=== PATIENT | male | born 1975 | race African-American/Black ===

== ENCOUNTER 2022-04-22 14:03 | Emergency (ER) | payer MEDICAID, SELFPAY ==
[2022-04-22 14:14] VITALS: BP 141/98; PULSE 100; RESP 18; TEMP 36.2; O2SAT 99; BMI 26.6
--- NOTE | 2022-04-22 14:44 | ED.GENADULT ---
HPI - General Adult General Time Seen by Provider: 14:44 Date Seen: 04/22/22 Chief complaint: Nausea/Vomiting Stated complaint: Vomiting/Dehydrated Time Seen by Provider: 04/22/22 14:22 Source: patient, family and RN notes reviewed Limitations: no limitations History of Present Illness HPI narrative: Adam is a 41-year-old male coming in with complaint of nausea vomiting. States he feels like his heart is racing. He states he has not drank for 2 days now. He admits he has problem with alcohol and has been drinking whiskey for couple weeks. He states when he starts he just feels like he can not stop in when he finishes 1 bottle he gets another. He has not been through treatment before. He is interested in taking oral medicine to prevent drinking. He sees Dr. De Leon in the clinic and I reviewed with him that that may be something he could talk to Dr. De Leon about. He has some abdominal discomfort. Does endorse maybe some blood mixed in the emesis at times. He states he has not been able to sleep for a couple days. He has also had some hiccups. No fevers or chills noted. No cough or cold symptoms. Onset (ago): day(s) Related Data Previous Rx's Medication Instructions Recorded omeprazole 40 mg capsule,delayed 40 mg PO DAILY #14 cap 04/22/22 release ondansetron HCl 4 mg tablet 4 mg PO Q6H PRN #10 tab 04/22/22 Allergies Allergy/AdvReac Type Severity Reaction Status Date / Time No Known Drug Allergies Allergy Verified 04/22/22 14:18 Review of Systems Status of ROS: Reports: 10 or more systems reviewed and unremarkable except as noted in History and below [facility] Medical History (Updated 04/22/22 @ 16:56 by Mary Allen MD) No significant past medical history Surgical History (Updated 04/22/22 @ 14:20 by Agnes Douglas RN) No significant past surgical history Social History Smoking Status: Never smoker How often do you have a drink containing alcohol: 4 or more times a week How many standard drinks containing alcohol do you have on a typical day: 10 or more AUDIT-C Alcohol total score: 8 Non-prescribed substance use: denies use Exam Const: Vital Signs, click to edit/add: Vital Signs - 24 hr 04/22/22 14:14 04/22/22 15:47 Temperature 97.2 F L Pulse Rate [Pulse Oximeter] 100 88 Respiratory Rate 18 18 Blood Pressure [Ri ght Upper Arm] 141/98 H Pulse Oximetry 99 97 Documenting provider has reviewed patient's vital signs: yes Common normals: no apparent distress (Occasional hiccup during my interaction with him), average body habitus, oriented x3, no limitations, healthy appearing and alert General appearance: cooperative and comfortable Orientation/consciousness: Yes awake HENMT: Common normals: normocephalic, head/scalp atraumatic, hearing grossly normal bilaterally, external ears normal, external nose normal, nasal mucous membranes and turbinates normal, moist oral mucous membranes and oropharynx normal Head and scalp: normocephalic and atraumatic Nose: external nose normal and nasal mucous membranes and turbinates normal External ear: external ears normal Eye: Common normals: PERRL, EOMs intact bilaterally and conjunctivae normal Conjunctiva: conjunctiva(e) normal Pupil: PERRL Neck & C-Spine: Common normals: full ROM, no lymphadenopathy, supple, no meningeal signs, no JVD and thyroid normal Thyroid: thyroid normal Resp: Common normals: normal respiratory effort, no retractions, no use of accessory muscles and clear to auscultation bilaterally Auscultation: clear to auscultation bilaterally Cardio: Common normals: no JVD, regular rhythm, S1 normal heart sound, S2 normal heart sound, no gallops, no clicks and no murmurs Rate: tachycardic Rhythm: regular rhythm Heart sounds: S1 normal and S2 normal GI: Common normals: Normal to inspection, nondistended, normoactive bowel sounds present, soft to palpation, non-tender, no hepatosplenomegaly and no masses Palpation: soft and no hepatosplenomegaly Neuro: Common normals: oriented x3 Sensorium/orientation: awake and alert Meningeal signs: no meningeal signs Course Course Hospital Course: Reviewed with Adam that we will place an IV and start some normal saline, will give him 4 mg IV Zofran. We will check baseline labs. Clinically right now is abdomen is soft. He could be dehydrated as well as in early withdrawal. Will watch him closely. Once he is able to tolerate some orals I can give him oral vitamins. Reevaluation(s) Reevaluation #1: Patient received a full 2 L of normal saline, did just urinate and is feeling better. He states he is actually feeling hungry now. He would like to discharge to home. We discussed use of Zofran for prevention of further nausea and have a script at home. We also discussed putting him on a short course of a proton pump inhibitor in case there is some underlying gastritis that was induced from alcohol use. He would like to discharge to home. He states he will take oral multivitamin with folic acid and thiamine. Time: 16:52 Vital Signs Vital signs: Initial Vital Signs Temperature 97.2 F L 04/22/22 14:14 Temperature Source Temporal Artery Scan 04/22/22 14:14 Pulse Rate 100 04/22/22 14:14 Respiratory Rate 18 04/22/22 14:14 Blood Pressure 141/98 H 04/22/22 14:14 Blood Pressure Mean 112 04/22/22 14:14 Blood Pressure Position Supine 04/22/22 14:14 Pulse Oximetry 99 04/22/22 14:14 Oxygen Delivery Method 04/22/22 14:14 Vital Signs Temperature 97.2 F L 04/22/22 14:14 Pulse Rate 100 04/22/22 14:14 Respiratory Rate 18 04/22/22 14:14 Blood Pressure 141/98 H 04/22/22 14:14 Pulse Oximetry 99 04/22/22 14:14 Temperature 97.2 F L 04/22/22 14:14 Pulse Rate 88 04/22/22 15:47 Respiratory Rate 18 04/22/22 15:47 Blood Pressure 141/98 H 04/22/22 14:14 Pulse Oximetry 97 04/22/22 15:47 Medical Decision Making Lab Data Lab results reviewed: Yes I reviewed the patient's lab results Lab results narrative: Reviewed labs with the patient. Reviewed there was mild elevated transaminase enzymes from the liver consistent with mild alcoholic hepatitis. Reviewed with him that this should improve if he abstains from alcohol. There is no evidence of any pancreatitis as lipase is normal. Overall labs are very reassuring. Functionality of liver looks normal with a normal protime. Labs: Lab Results 04/22/22 04/22/22 04/22/22 Range/Units 15:34 15:34 15:34 WBC 5.26 (4.50-11.00) K/uL RBC 5.09 (4.30-5.90) m/uL Hgb 15.0 (13.5-17.5) gm/dL Hct 43.4 (37.0-53.0) % MCV 85 (80-100) fL MCH 30 (26-34) pg MCHC 35 (32-36) gm/dL RDW Coeff of Filipe 12.5 (11.5-15.5) % Plt Count 186 (140-440) K/uL Neut % (Auto) 72.6 H (42.0-72.0) % Lymph % (Auto) 17.3 L (20-44) % Nobles % (Auto) 9.7 (0.0-11.0) % Eos % (Auto) 0.0 (0.0-7.0) % Baso % (Auto) 0.4 (0.0-3.0) % Neut # (Auto) 3.80 (1.7-7.0) K/uL Lymph # (Auto) 0.90 (0.90-2.90) K/uL Nobles # (Auto) 0.50 (0.00-0.90) K/UL Eos # (Auto) 0.00 (0.00-0.50) K/uL Baso # (Auto) 0.02 (0.00-0.30) K/uL Abs Immat Gran (auto) 0.00 (0.00-0.30) K/uL INR 0.99 (0.91-1.10) Sodium 134 L (135-149) mmol/L Potassium 3.9 (3.6-5.1) mmol/L Chloride 91 L (96-114) mmol/L Carbon Dioxide 29 (20-32) mmol/L BUN 18 (5-24) mg/dL Creatinine 1.1 (0.5-1.5) mg/dL Estimated Creat Clear 79.45 Estimated GFR 83 ml/min Glucose 147 H (60-115) mg/dL Lactate (0.5-1.9) mmol/L Calcium 10.3 (8.4-10.6) mg/dL Magnesium 1.8 (1.5-2.6) mg/dL Total Bilirubin 1.9 H (0.1-1.5) mg/dL AST 115 H (12-35) U/L ALT 102 H (4-50) U/L Alkaline Phosphatase 87 (40-150) U/L Total Protein 10.0 H (6.0-8.3) g/dL Albumin 5.3 H (3.3-5.0) g/dL Lipase 113 (23-300) U/L Ethyl Alcohol < 0.01 L (0.01-0.03) % 04/22/22 Range/Units 15:34 WBC (4.50-11.00) K/uL RBC (4.30-5.90) m/uL Hgb (13.5-17.5) gm/dL Hct (37.0-53.0) % MCV (80-100) fL MCH (26-34) pg MCHC (32-36) gm/dL RDW Coeff of Filipe (11.5-15.5) % Plt Count (140-440) K/uL Neut % (Auto) (42.0-72.0) % Lymph % (Auto) (20-44) % Nobles % (Auto) (0.0-11.0) % Eos % (Auto) (0.0-7.0) % Baso % (Auto) (0.0-3.0) % Neut # (Auto) (1.7-7.0) K/uL Lymph # (Auto) (0.90-2.90) K/uL Nobles # (Auto) (0.00-0.90) K/UL Eos # (Auto) (0.00-0.50) K/uL Baso # (Auto) (0.00-0.30) K/uL Abs Immat Gran (auto) (0.00-0.30) K/uL INR (0.91-1.10) Sodium (135-149) mmol/L Potassium (3.6-5.1) mmol/L Chloride (96-114) mmol/L Carbon Dioxide (20-32) mmol/L BUN (5-24) mg/dL Creatinine (0.5-1.5) mg/dL Estimated Creat Clear Estimated GFR ml/min Glucose (60-115) mg/dL Lactate 2.0 H (0.5-1.9) mmol/L Calcium (8.4-10.6) mg/dL Magnesium (1.5-2.6) mg/dL Total Bilirubin (0.1-1.5) mg/dL AST (12-35) U/L ALT (4-50) U/L Alkaline Phosphatase (40-150) U/L Total Protein (6.0-8.3) g/dL Albumin (3.3-5.0) g/dL Lipase (23-300) U/L Ethyl Alcohol (0.01-0.03) % Critical Care Time Critical Care Time Critical Care Time: No Discharge Plan Discharge Clinical Impression: Nausea & vomiting Condition: Improved Instructions: Acute Nausea and Vomiting (ED), Alcohol Withdrawal (ED), Alcohol Use Disorder (ED), Alcoholic Hepatitis (ED) Additional Instructions: Can use Zofran as prescribed if needed for any return of any nausea or vomiting. Do recommend taking the omeprazole daily for the next couple of weeks to help stomach subtle and possibly any underlying gastritis from the alcohol use to resolve. Highly encouraged you to refrain from alcohol use. Please follow-up with Dr. De Leon next week to discuss medication management for abstinence of alcohol. Consider going to alcoholics anonymous. If you have return of your abdominal pain, nausea vomiting is uncontrolled, have further concerns, please seek re-evaluation. Activity Level: Activity as Tolerated Discharge Diet: Regular Prescriptions: New omeprazole 40 mg capsule,delayed release(DR/EC) 40 mg PO DAILY Qty: 14 0RF ondansetron HCl 4 mg tablet 4 mg PO Q6H PRN (Reason: nausea and vomiting) Qty: 10 0RF Follow Up/Referrals: Moise De Leon MD [Primary Care Provider] - Stand Alone Forms: [employer] Info Instructions
[2022-04-22] MEDS: 0.9 % SODIUM CHLORIDE 1000 ml 1,000 ML IV ×2 (15:40→16:11)
[2022-04-22 15:42] LABS: Basophils Absolute Auto 0.02 K/uL (0.00-0.30); Basophils Percent Auto 0.4 % (0.0-3.0); Hematocrit 43.4 % (37.0-53.0); Lymphocytes Percent Auto 17.3 % (20-44); Mean Corpuscular HGB Conc 35 gm/dL (32-36); Mean Corpuscular Hemoglobin 30 pg (26-34); Mean Corpuscular Volume 85 fL (80-100); Monocytes Percent Auto 9.7 % (0.0-11.0); Neutrophils Percent Auto 72.6 % (42.0-72.0); Platelet Count* 186 K/uL (140-440); RDW Coefficient of Variation % 12.5 % (11.5-15.5); Red Blood Count 5.09 m/uL (4.30-5.90); White Blood Count* 5.26 K/uL (4.50-11.00)
[2022-04-22] MEDS: ONDANSETRON 2 MG/ML inj 4 MG IVP (15:43)
[2022-04-22] MEDS: PANTOPRAZOLE SODIUM 40 MG INJ 80 MG IVP (15:43)
[2022-04-22 15:45] LABS: Slide Review Reflex No
[2022-04-22 15:47] VITALS: PULSE 88; RESP 18; O2SAT 97
[2022-04-22 15:54] LABS: Albumin* 5.3 g/dL (3.3-5.0); Chloride* 91 mmol/L (96-114)
[2022-04-22 15:55] LABS: INR 0.99 (0.91-1.10); Potassium* 3.9 mmol/L (3.6-5.1); Prothrombin Time 13.4 Seconds; Sodium* 134 mmol/L (135-149)
[2022-04-22 15:57] LABS: Alkaline Phosphatase* 87 U/L (40-150); Aspartate Amino Transferase* 115 U/L (12-35); Bilirubin Total* 1.9 mg/dL (0.1-1.5); Blood Urea Nitrogen* 18 mg/dL (5-24); Carbon Dioxide* 29 mmol/L (20-32); Creatinine* 1.1 mg/dL (0.5-1.5); Est. Creatinine Clearance* 79.45; Estimated Glomerular Filt Rate 83 ml/min; Glucose* 147 mg/dL (60-115); Lipase* 113 U/L (23-300)
[2022-04-22 15:58] LABS: Alanine Aminotransferase* 102 U/L (4-50); Calcium* 10.3 mg/dL (8.4-10.6); Magnesium* 1.8 mg/dL (1.5-2.6)
[2022-04-22 16:02] LABS: Ethanol* < 0.01 % (0.01-0.03)
== END 2022-04-22 17:05 | disposition home or self-care (01) ==
PROVIDERS: Emergency Provider Family Medicine; PCP Family Medicine
DX: R11.2 Nausea with vomiting, unspecified (principal); F10.99 Alcohol use, unspecified with unspecified alcohol-induced disorder; K70.10 Alcoholic hepatitis without ascites
CPT/HCPCS: 36415; 80053; 82077; 83605; 83690; 83735; 85025; 85610; 96374; 96375; 99284; C9113; J2405; J7030

== ENCOUNTER 2022-12-20 10:16 | Outpatient (CLI) | payer MEDICAID, SELFPAY ==
--- NOTE | 2022-12-20 10:30 | CRLHL7_ITS ---
For Patients: As a result of the Cures Act, medical imaging exams and procedure reports are released immediately into your electronic medical record. You may view this report before your referring provider. If you have questions, please contact your health care provider. 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 FINDINGS: Old granulomatous changes again noted. There is no evidence of a suspicious infiltrate, cavitary lesion or focal pleural abnormality. Pulmonary kevin are of normal size and density. Heart and blood vessels appear normal and there is no evidence of pleural fluid. IMPRESSION: No active pulmonary process identified. Dictated by Moise Ohara MD @ 12/20/2022 10:54:53 AM (Electronically Signed)
== END 2022-12-20 10:17 | disposition home or self-care (01) ==
LOC: RAD 10:18
PROVIDERS: PCP Family Medicine; Visit Provider Family Medicine
DX: Z92.89 Personal history of other medical treatment (principal)
CPT/HCPCS: 71046

== ENCOUNTER 2024-03-11 14:20 | Outpatient (CLI) | payer MEDICAID, SELFPAY | END 2024-03-11 14:21 | disposition home or self-care (01) | LOC: NFLDREF 03-26 15:57 | PROVIDERS: PCP Family Medicine; Referring Provider Family Medicine; Visit Provider Family Medicine | DX: Z71.85 Encounter for immunization safety counseling (principal) | CPT/HCPCS: 86735; 86762; 86765; 86787 ==

== ENCOUNTER 2024-04-15 08:31 | Outpatient (CLI) | payer MEDICAID, SELFPAY ==
--- OUTSIDE RECORDS SUMMARY | 2024-04-15 08:34 | XMS_ITS | Clinical Summary ---
Author Organization [facility] Address [address] [place] [id number] Care Team Providers Care Library Services Assistant Name Role Phone No Ref-Primary, Physician Primary Care Provider Social History Tobacco Use Types Packs/Day Years Used Date Smoking Tobacco: Never Assessed Adolescent Education Answer Date Record ed Getting School Help Needed Not on file 10/03 Sex and Gender Information Value Date Recorded Sex Assigned at Not on file Gender Identity Not on file Sexual Orientation Not on file Plan of Treatment Health Maintenance Due Date Last Done Comments ADVANCE CARE PLANNING 1974 ANNUAL REVIEW OF HM ORDERS 1974 CT COLONOGRAPHY 1974 FIT 1974 FLEX SIG 1974 GLUCOSE 1974 YEARLY PREVENTIVE VISIT 1974 sDNA (Cologuard) 1974 COLONOSCOPY 02/14/1984 COLORECTAL CANCER SCREENING 02/14/1984 HIV SCREENING 1989 HEPATITIS C SCREENING 02/14/1992 LIPID 2014 HEPATITIS B IMMUNIZATION (2 of 2 - CpG 2-dose series) 09/07/2022 08/10/2022 COVID-19 Vaccine ( season) 2023 02/21/2023, 08/24/2021, 11/17/2020, Additional history exists PHQ-2 (once per calendar year) 2023 ZOSTER IMMUNIZATION (1 of 2) 02/14/2024 INFLUENZA VACCINE (#1) 2024 , 07/31/2013, 08/02/2012 DTAP/TDAP/TD IMMUNIZATION (2 - Td or Tdap) 02/12/2032 02/11/2022 HPV IMMUNIZATION Aged Out No longer e ligible based on patient's age to complete this topic IPV IMMUNIZATION Aged Out No longer e ligible based on patient's age to complete this topic MENINGITIS IMMUNIZATION Aged Out No l onger eligible based on patient's age to complete this topic Pneumococcal Vaccine: Pediatrics (0 to 5 Years) and At-Risk Patients (6 to 64 Years) Aged Out No longer eligible based on patient's age to complete this topic RSV MONOCLONAL ANTIBODY Aged Out No l onger eligible based on patient's age to complete this topic Care Teams Library Services Assistant Relationship Specialty Start Date End Date No Ref-Primary, Physician PCP - General 10/03/23
--- OUTSIDE RECORDS SUMMARY | 2024-04-15 08:34 | XMS_ITS | Referral Summary ---
Author Organization [facility] Address [address] [place] [address] Care Team Providers Care Esthetician/Spa Coordinator Name Role Phone No Ref-Primary, Physician Primary Care Provider Social History Tobacco Use Types Packs/Day Years Used Date Smoking Tobacco: Never Assessed Adolescent Education Answer Date Record ed Getting School Help Needed Not on file 10/03 Sex and Gender Information Value Date Recorded Sex Assigned at Not on file Gender Identity Not on file Sexual Orientation Not on file Plan of Treatment Not on file Care Teams Esthetician/Spa Coordinator Relationship Specialty Start Date End Date No Ref-Primary, Physician PCP - General 10/03/23
--- OUTSIDE RECORDS SUMMARY | 2024-04-15 08:34 | XMS_ITS | Clinical Summary ---
Author Organization [facility] [place], [place] [address] Care Team Providers Care Butcher Meat Name Role Phone Pcp, No Primary Care Provider Unavailabl e Allergies No known active allergies Medications Medication Sig Dispensed Refills Start Date End Date Status diclofenac 1 % topical (VOLTAREN) gelIndications:Chroni c midline low back pain without sciatica Apply topically to affected area(s) 4 times daily. 100 g 02/08/2018 Active Omeprazole 20 mg tabletIndications:Edmar sea and vomiting, intractability of vomiting not specified, unspecified vomiting type Take 1 tablet by mouth once daily before a meal. 14 tablet 05/02/2018 Active ondansetron (ZOFRAN) 4 mg tabletIndications:Edmar sea and vomiting, intractability of vomiting not specified, unspecified vomiting type Take 1 tablet by mouth every 8 hours if needed for Nausea/Vomiting. 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 Immunizations Name Administration Dates Next Due Influenza, IIV3 (Age >=3 years) 07/31/2013,08/02 Social History Tobacco Use Types Packs/Day Years Used Date Smoking Tobacco: Never Smokeless Tobacco: Never Tobacco Cessation:Counseling Given: Yes Alcohol Use Standard Drinks/Week Comments Yes 0 (1 standard drink = 0.6 oz pure alcohol) In the past week patient has drank 5 pints of vodka PHQ-2 Answer Date Recorded PHQ-2 Score 0 12/04/2018 Sex and Gender Information Value Date Recorded Sex Assigned at Not on file Gender Identity Not on file Sexual Orientation Not on file Obstetrics History Last Filed Vital Signs Vital Sign Reading Time Taken Comments Blood Pressure 131/86 05/02/2018 11:35 AM CDT Pulse 88 05/02/2018 11:35 AM CDT Temperature 36.8 ??C (98.3 ??F) 05/02/2018 9:24 AM CD T Respiratory Rate 18 05/08/2017 11:44 AM CDT Oxygen Saturation 98% 05/02/2018 9:24 AM CDT Inhaled Oxygen Concentration - - Weight 83.1 kg (183 lb 3.2 oz) 05/02/2018 9:24 A M CDT Height 174 cm (5' 8.5) 05/02/2018 9:24 AM CDT Body Mass Index 27.45 05/02/2018 9:24 AM CDT Plan of Treatment Health Maintenance Due Date Last Done Comments Tdap 1985 HIV for age 15-65 1989 Hepatitis C screening for age 18-79 02/14/1992 Tetanus booster 1994 Depression screening for age 12+ 02/08/2019 02/08/2018, 12/05/2016, 11/28/2016, Additional history exists Colonoscopy through age 75 2019 Lipids for age 45-75 2019 BMI (ht and wt on same day) for age 18+ 05/02/2019 05/02/2018, 02/08/2018, 06/07/2017, Additional history exists COVID-19 vaccine series (2022-24 season) 2023 Zoster (shingles) series for age 50+ (1 of 2) 02/14/2024 Influenza for age 50-64 06/02/2024 07/31/2013, 08/02 Pneumococcal series for age 6-64 Aged Out No longer eligible based on patient's age to complete this topic Care Teams Butcher Meat Relationship Specialty Start Date End Date Pcp, No . PCP - General 10/20/18
--- OUTSIDE RECORDS SUMMARY | 2024-04-15 08:34 | XMS_ITS | Clinical Summary ---
Author Organization [facility] Address [address] [place] [address] Care Team Providers Care Hand Button Splitter Name Role Phone No Primary/Referring, Phy Primary Care Provider Unavailable Source Comments You are receiving this document as you are listed as the primary care provider,follow-up provider, or the patient has been referred to you for consultation.This is in compliance with the Medicare and[facility] EHR Incentive Program,which states Providers who transition their patient to another setting of careor provider of care or refers their patient to another provider of care shouldprovide summary care record for each transition of care or referral. [facility] Allergies No known active allergies Medications Medication Sig Dispensed Refills Start Date End Date Status acetaminophen (TYLENOL) 325 MG tablet Take 2 Tablets by mouth every 4 hours as needed for Pain. 30 Tablet 07/09/2019 Active Active Problems No known active problems Social History Tobacco Use Types Packs/Day Years Used Date Smoking Tobacco: Never Assessed Sex and Gender Information Value Date Recorded Sex Assigned at Not on file Gender Identity Not on file Sexual Orientation Not on file Last Filed Vital Signs Vital Sign Reading Time Taken Comments Blood Pressure 124/72 07/09/2019 12:00 PM CDT Pulse 72 07/09/2019 12:00 PM CDT Temperature 36.9 ??C (98.5 ??F) 07/09/2019 8:47 AM CD T Respiratory Rate 16 07/09/2019 12:00 PM CDT Oxygen Saturation 98% 07/09/2019 12:00 PM CDT Inhaled Oxygen Concentration - - Weight - - Height - - Body Mass Index - - Plan of Treatment Health Maintenance Due Date Last Done Comments Colon Cancer Screening Plan Due 1974 Hep C Screening (Preventive Services) 1974 PSA Screening Discussion 1974 HIV Screening (Preventive Services) 1990 Adult Preventive Visit 02/14/1992 DTaP/Tdap/Td (1 - Tdap) 1993 HepB (1) 1993 Cholesterol 2009 COVID-19 Vaccine (3 - 2022-2 4 season) 2023 11/17/2020, 10/20/2020 Zoster/Shingles (1 of 2) 02/14/2024 Influenza (#1) 2024 07/01/2020, 07/31/2013, 08/02/2012 HepA Aged Out No longer eligi ble based on patient's age to complete this topic Hib Aged Out No longer eligi ble based on patient's age to complete this topic IPV (Polio) Aged Out No longer eligi ble based on patient's age to complete this topic MCV4 Aged Out No longer eligi ble based on patient's age to complete this topic Pneumococcal Aged Out No longer eligi ble based on patient's age to complete this topic Care Teams Hand Button Splitter Relationship Specialty Start Date End Date No Primary/Referring, Phy PCP - General 07/09/19
== END 2024-04-15 08:32 | disposition home or self-care (01) ==
PROVIDERS: PCP Family Medicine; Visit Provider Family Medicine
DX: R53.83 Other fatigue (principal)
CPT/HCPCS: 80053; 84439; 84443

== ENCOUNTER 2024-06-28 09:16 | Outpatient (CLI) | payer MEDICAID, SELFPAY ==
--- OUTSIDE RECORDS SUMMARY | 2024-07-03 07:37 | XMS_ITS | Clinical Summary ---
Author Organization [facility] Address [address] [place] [id number] Care Team Providers Care Webbing Seamer Pound Net Name Role Phone No Ref-Primary, Physician Primary [...] 2 - CpG 2-dose series) 09/07/2022 08/10/2022 PHQ-2 (once per calendar year) 2023 ZOSTER IMMUNIZATION (1 of 2) 02/14/2024 COVID-19 Vaccine ( season) 2024 02/21/2023, 08/24/2021, 11/17/2020, Additional history exists INFLUENZA VACCINE (#1) 2024 , 07/31/2013, 08/02/2012 [...] age to complete this topic Care Teams Webbing Seamer Pound Net Relationship Specialty Start Date End Date No Ref-Primary, Physician PCP - General 10/03/23
--- OUTSIDE RECORDS SUMMARY | 2024-07-03 07:37 | XMS_ITS | Clinical Summary ---
Author Organization [facility] Address [address] [place] [address] Care Team Providers Care Enamel Sprayer Name Role Phone No Primary/Referring, Phy Primary Care Provider Unavailable Source Comments You are receiving this document as you are listed as the primary care provider,follow-up provider, or the patient has been referred to you for consultation.This is in compliance with the Medicare and[facility] EHR Incentive Program,which states Providers who transition [...] Tdap) 1993 HepB (1) 1993 Cholesterol 2009 Zoster/Shingles (1 of 2) 02/14/2024 COVID-19 Vaccine (3 - 2023-2 5 season) 2024 11/17/2020, 10/20/2020 Influenza (#1) 2024 07/01/2020, 07/31/2013, 08/02/2012 HepA [...] age to complete this topic Care Teams Enamel Sprayer Relationship Specialty Start Date End Date No Primary/Referring, Phy PCP - General 07/09/19
--- OUTSIDE RECORDS SUMMARY | 2024-07-03 07:37 | XMS_ITS | Clinical Summary ---
Author Organization 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 PCP - General 10/20/18
--- OUTSIDE RECORDS SUMMARY | 2024-07-03 07:37 | XMS_ITS | Referral Summary ---
Author Organization [facility] Address [address] [place] [id number] Care Team Providers Care Electron Beam Photo Mask Maker Name Role Phone No Ref-Primary, Physician Primary [...] of Treatment Not on file Care Teams Electron Beam Photo Mask Maker Relationship Specialty Start Date End Date No Ref-Primary, Physician PCP - General 10/03/23
== END 2024-06-28 09:17 | disposition home or self-care (01) ==
PROVIDERS: PCP Family Medicine; Referring Provider Family Medicine; Visit Provider Family Medicine
DX: R79.89 Other specified abnormal findings of blood chemistry (principal); R68.82 Decreased libido
CPT/HCPCS: 80053; 84403; 84439; 84443

== ENCOUNTER 2024-11-27 12:51 | Outpatient (CLI) | payer MEDICAID, SELFPAY | END 2024-11-27 12:52 | disposition home or self-care (01) | LOC: MRI 12:52 | PROVIDERS: PCP Family Medicine; Visit Provider Family Medicine | DX: M54.9 Dorsalgia, unspecified (principal); M51.26 Other intervertebral disc displacement, lumbar region; M51.27 Other intervertebral disc displacement, lumbosacral region; M47.896 Other spondylosis, lumbar region; M54.16 Radiculopathy, lumbar region | CPT/HCPCS: 72148 ==

== ENCOUNTER 2024-12-24 07:46 | Outpatient (CLI) | payer BC, SELFPAY | END 2024-12-24 07:47 | disposition home or self-care (01) | LOC: NFLDREF 12-25 08:54 | PROVIDERS: PCP Family Medicine; Referring Provider Family Medicine; Visit Provider Family Medicine | DX: D64.9 Anemia, unspecified (principal); R79.89 Other specified abnormal findings of blood chemistry; N52.9 Male erectile dysfunction, unspecified; Z13.6 Encounter for screening for cardiovascular disorders | CPT/HCPCS: 80053; 80061; 84403; 84439; 84443 ==

== ENCOUNTER 2025-02-18 07:28 | Outpatient (CLI) | payer BC, SELFPAY | END 2025-02-18 07:29 | disposition home or self-care (01) | PROVIDERS: PCP Family Medicine; Visit Provider Family Medicine | DX: M54.16 Radiculopathy, lumbar region (principal); M51.369 Other intervertebral disc degeneration, lumbar region without mention of lumbar back pain or lower extremity pain | CPT/HCPCS: 62323; J0702; Q9966 ==